=== PATIENT | female | born 1975 | race Caucasian/White ===

== ENCOUNTER 2017-12-02 19:29 | Inpatient (IN) | payer MEDICAID ==
[~2017-12-02] VITALS: Ht 167.6 cm; Wt 53.8 kg
[~2017-12-02 19:29] MED LIST: AMOX1TAB64 PO; BUPR150T6; BUSP10TA PO; CLON2TAB PO; DOXY25TA18 PO; ESCI10TA; HYDR100C2; HYDROXYZINE HCL; IBUP-1223; LIPA1CAP54; METF500T4 PO; MULT-658 PO; NORE0.3513; NORE0.3513 PO; NORE0.3535 PO; POLY17PO5 PO; SERT100T5 PO; SERT25TA PO; SERT50TA PO; SULF1TAB24 PO; TRAM100T33 PO; TRAZ150T62 PO; TRAZ300T6 PO; [UNRECOGNIZED DRUG - CODE]
[2017-12-02] MEDS ORDERED: SODIUM CHLORIDE FLUSH 10ML SYR IVF ONE (20:00)
[2017-12-02 20:24] LABS: BASOPHILS # (AUTO) 0.02 x10^3/uL (0-0.1); BASOPHILS % (AUTO) 0 % (0-1); EOSINOPHILS # (AUTO) 0.15 x10^3/uL (0-0.4); EOSINOPHILS % (AUTO) 2 % (1-7); LYMPHOCYTES % (AUTO) 10 % (22-44); MD NO; MEAN CORPUSCULAR HEMOGLOBIN 33.4 pg (27.0-34.8); MEAN CORPUSCULAR HGB CONC 33.8 g/dL (32.4-35.8); MEAN CORPUSCULAR VOLUME 98.9 fL (80-100); MEAN PLATELET VOLUME 7.5 fL (7.4-10.4); MONOCYTES # (AUTO) 0.59 x10^3/uL (0.2-0.8); MONOCYTES % (AUTO) 7 % (2-9); NEUTROPHILS # (AUTO) 7.31 x10^3/uL (1.8-6.8); NEUTROPHILS % (AUTO) 81 % (42-75); PLATELET COUNT 224 x10^3/uL (130-400); RED BLOOD COUNT 3.51 x10^6/uL (3.82-5.3); RED CELL DISTRIBUTION WIDTH 16.4 % (9.6-15.2)
[2017-12-02 20:32] LABS: ALANINE AMINOTRANSFERASE 135 U/L (12-78); ALBUMIN 3.5 g/dL (3.4-5.0); ANION GAP 5 mmol/L (5-15); CALCIUM 9.3 mg/dL (8.5-10.1); CHLORIDE 96 mmol/L (98-107); CREATININE 0.57 mg/dL (0.55-1.02)
[2017-12-02 20:34] LABS: ALKALINE PHOSPHATASE 422 U/L (45-117); BILIRUBIN,TOTAL 4.2 mg/dL (0.2-1.0); TOTAL PROTEIN 8.1 g/dL (6.4-8.2)
[2017-12-02 22:31] LABS: CULTURE INDICATED? YES; MICROSCOPIC INDICATED
[2017-12-02] MEDS ORDERED: morphine SULFATE 15 MG TAB.IR PO ONE (23:00)
[2017-12-02] MEDS ORDERED: ONDANSETRON ODT 4 MG PO ONE (23:00)
[2017-12-02] MEDS ORDERED: ONDANSETRON ODT 4 MG ONE (23:05)
[2017-12-03] MEDS ORDERED: PROCHLORPERAZINE 5 MG/ML, 2ML IVPush ONE (02:00)
[2017-12-03] MEDS ORDERED: MORPHINE SULFATE 4 MG/ML, 1ML IVPush ONE (02:00)
[2017-12-03] MEDS ORDERED: morphine SULFATE 10 MG/ML, 1ML ONE (02:07)
[2017-12-03] MEDS ORDERED: PROCHLORPERAZINE 5 MG/ML, 2ML ONE (02:07)
[2017-12-03 03:00] VITALS: BP 150/94
[2017-12-03] MEDS ORDERED: hydrALAzine 20 MG/ML, 1ML IVPush PRN (03:00)
[2017-12-03] MEDS ORDERED: POLYETHYLENE GLYCOL 17 GM PACKET PO PRN (03:00)
[2017-12-03] MEDS ORDERED: ONDANSETRON 2MG/ML, 2ML IVPush PRN (03:00)
[2017-12-03] MEDS ORDERED: ONDANSETRON ODT 4 MG PO PRN (03:00)
[2017-12-03] MEDS ORDERED: ACETAMINOPHEN 325 MG TABLET PO PRN (03:00)
[2017-12-03] MEDS ORDERED: BISACODYL 10 MG SUPP PR PRN (03:00)
[2017-12-03] MEDS ORDERED: PROMETHAZINE 25 MG/ML, 1ML IM PRN (03:00)
[2017-12-03] MEDS: SODIUM CHLORIDE 0.9% 1,000 ML IV SCH ×3 (03:13→18:44)
[2017-12-03] MEDS: CEFOTETAN PMX 1GM/50ML 50 ML IV SCH ×2 (03:40→16:50)
[2017-12-03] MEDS: NICOTINE 7 MG/24 HR PATCH.TD24 TD SCH (03:40)
[2017-12-03 04:01] LABS: INTERNATIONAL NORMALIZED RATIO 1.03 (0.93-1.1); PROTHROMBIN TIME 10.7 Seconds (9.6-11.5)
[2017-12-03 04:15] LABS: FREE T4 (FREE THYROXINE) 1.01 ng/dL (0.76-1.46)
[2017-12-03 04:19] LABS: HEMOGLOBIN A1C 5.5 % (4.2-6.3)
[2017-12-03] MEDS: METRONIDAZOLE PMX 500MG/100ML 100 ML IV SCH ×3 (04:32→22:50)
[2017-12-03] MEDS: INSULIN LISPRO 100 UNITS/ML, PEN SQ-INSULIN SCH ×4 (07:00→21:00)
[2017-12-03] MEDS: morphine SULFATE 10 MG/ML, 1ML IVPush PRN ×2 (08:03→10:49)
[2017-12-03] MEDS: SENNA/DOCUSATE TABLET PO SCH (08:10)
[2017-12-03] MEDS: MULTIVITAMIN 1 TABLET PO SCH (08:10)
[2017-12-03] MEDS: SERTRALINE 100MG TABLET PO SCH ×3 (08:11→22:54)
[2017-12-03 11:23] VITALS: BP 166/97
[2017-12-03] MEDS ORDERED: MAGNESIUM SULFATE PMX 2GM/50ML 50 ML IV ONE (12:00)
[2017-12-03] MEDS: HYDROmorphone 2 MG/ML, 1ML IVPush PRN ×4 (14:05→22:50)
[2017-12-03] MEDS ORDERED: LORazepam 2 MG/ML, 1ML IVPush ONE (15:00)
[2017-12-03 15:55] VITALS: BP 159/97
[2017-12-03 19:44] VITALS: BP 148/96
[2017-12-03] MEDS: TRAZODONE 150MG TABLET PO SCH (22:50)
[2017-12-04] MEDS: HYDROmorphone 2 MG/ML, 1ML IVPush PRN ×8 (02:11→23:06)
[2017-12-04 02:30] VITALS: BP 131/77
[2017-12-04] MEDS: CEFOTETAN PMX 1GM/50ML 50 ML IV SCH ×2 (03:58→16:27)
[2017-12-04] MEDS: METRONIDAZOLE PMX 500MG/100ML 100 ML IV SCH ×3 (05:15→21:14)
[2017-12-04] MEDS: SODIUM CHLORIDE 0.9% 1,000 ML IV SCH (05:15)
[2017-12-04] MEDS: NICOTINE 7 MG/24 HR PATCH.TD24 TD SCH (05:15)
[2017-12-04 05:33] LABS: ALANINE AMINOTRANSFERASE 71 U/L (12-78); ALBUMIN 2.8 g/dL (3.4-5.0); ANION GAP 6 mmol/L (5-15); CHLORIDE 105 mmol/L (98-107); CREATININE 0.64 mg/dL (0.55-1.02)
[2017-12-04 05:38] LABS: ALKALINE PHOSPHATASE 296 U/L (45-117); BILIRUBIN,TOTAL 1.3 mg/dL (0.2-1.0); CHOL/HDL RATIO 1.8; CHOLESTEROL, TOTAL 98 mg/dL (140-239); HDL CHOL % 55 % (28-40); HDL CHOLESTEROL (DIRECT) 54 mg/dL (40-60); LDL CHOLESTEROL,CALCULATED 34 mg/dL (54-169); LDL/HDL RATIO 0.6 (0.5-3.0); TOTAL PROTEIN 6.5 g/dL (6.4-8.2); TRIGLYCERIDES 49 mg/dL (50-200); VLDL CHOLESTEROL 10 mg/dL (0-25)
[2017-12-04 05:43] LABS: BASOPHILS # (AUTO) 0.03 x10^3/uL (0-0.1); BASOPHILS % (AUTO) 1 % (0-1); EOSINOPHILS # (AUTO) 0.08 x10^3/uL (0-0.4); EOSINOPHILS % (AUTO) 2 % (1-7); LYMPHOCYTES # (AUTO) 1.09 x10^3/uL (1-3.4); LYMPHOCYTES % (AUTO) 27 % (22-44); MD NO; MEAN CORPUSCULAR HEMOGLOBIN 33.9 pg (27.0-34.8); MEAN CORPUSCULAR HGB CONC 34.5 g/dL (32.4-35.8); MEAN CORPUSCULAR VOLUME 98.1 fL (80-100); MEAN PLATELET VOLUME 7.7 fL (7.4-10.4); MONOCYTES # (AUTO) 0.61 x10^3/uL (0.2-0.8); MONOCYTES % (AUTO) 15 % (2-9); NEUTROPHILS # (AUTO) 2.25 x10^3/uL (1.8-6.8); NEUTROPHILS % (AUTO) 56 % (42-75); PLATELET COUNT 211 x10^3/uL (130-400); RED BLOOD COUNT 2.92 x10^6/uL (3.82-5.3); RED CELL DISTRIBUTION WIDTH 16.2 % (9.6-15.2)
[2017-12-04] MEDS: INSULIN LISPRO 100 UNITS/ML, PEN SQ-INSULIN SCH ×4 (07:00→21:00)
[2017-12-04] MEDS: MULTIVITAMIN 1 TABLET PO SCH (08:04)
[2017-12-04] MEDS: SENNA/DOCUSATE TABLET PO SCH (08:05)
[2017-12-04 08:10] VITALS: BP 132/83
[2017-12-04] MEDS: LORazepam 2 MG/ML, 1ML IVPush PRN ×2 (13:14→21:08)
[2017-12-04 14:02] VITALS: BP 129/81
[2017-12-04] MEDS ORDERED: INSULIN LISPRO 100 UNITS/ML, PEN SQ-INSULIN ONE (17:00)
[2017-12-04 19:18] VITALS: BP 144/83
[2017-12-04] MEDS: TRAZODONE 150MG TABLET PO SCH ×2 (21:08→23:06)
[2017-12-04] MEDS: SERTRALINE 100MG TABLET PO SCH (21:09)
[2017-12-05 01:38] VITALS: BP 127/73
[2017-12-05] MEDS: HYDROmorphone 2 MG/ML, 1ML IVPush PRN ×7 (02:05→22:13)
[2017-12-05] MEDS: CEFOTETAN PMX 1GM/50ML 50 ML IV SCH ×2 (05:03→16:53)
[2017-12-05] MEDS: NICOTINE 7 MG/24 HR PATCH.TD24 TD SCH (05:03)
[2017-12-05] MEDS: METRONIDAZOLE PMX 500MG/100ML 100 ML IV SCH ×3 (05:53→20:46)
[2017-12-05] MEDS ORDERED: EPINEPHRINE 1 MG/ML, 1ML ONE (06:09)
[2017-12-05] MEDS ORDERED: BUPIVACAINE/PF 0.5% ONE (06:09)
[2017-12-05 06:18] LABS: BASOPHILS # (AUTO) 0.02 x10^3/uL (0-0.1); BASOPHILS % (AUTO) 1 % (0-1); EOSINOPHILS % (AUTO) 3 % (1-7); LYMPHOCYTES % (AUTO) 28 % (22-44); MD NO; MEAN CORPUSCULAR HEMOGLOBIN 33.8 pg (27.0-34.8); MEAN CORPUSCULAR HGB CONC 34.1 g/dL (32.4-35.8); MEAN CORPUSCULAR VOLUME 99.1 fL (80-100); MEAN PLATELET VOLUME 7.4 fL (7.4-10.4); MONOCYTES # (AUTO) 0.57 x10^3/uL (0.2-0.8); MONOCYTES % (AUTO) 14 % (2-9); NEUTROPHILS # (AUTO) 2.33 x10^3/uL (1.8-6.8); NEUTROPHILS % (AUTO) 55 % (42-75); PLATELET COUNT 238 x10^3/uL (130-400); RED BLOOD COUNT 2.97 x10^6/uL (3.82-5.3); RED CELL DISTRIBUTION WIDTH 16.2 % (9.6-15.2)
[2017-12-05 06:31] LABS: ALANINE AMINOTRANSFERASE 51 U/L (12-78); ALBUMIN 2.6 g/dL (3.4-5.0); ANION GAP 8 mmol/L (5-15); CALCIUM 8.7 mg/dL (8.5-10.1); CHLORIDE 104 mmol/L (98-107)
[2017-12-05 06:33] LABS: ALKALINE PHOSPHATASE 263 U/L (45-117); BILIRUBIN,TOTAL 1.1 mg/dL (0.2-1.0); CREATININE 0.66 mg/dL (0.55-1.02); TOTAL PROTEIN 6.4 g/dL (6.4-8.2)
[2017-12-05] MEDS ORDERED: ONDANSETRON ODT 8 MG PO ONE ×2 (07:00→08:30)
[2017-12-05] MEDS ORDERED: GABAPENTIN 300 MG CAPSULE PO ONE ×2 (07:00→08:30)
[2017-12-05] MEDS: INSULIN LISPRO 100 UNITS/ML, PEN SQ-INSULIN SCH ×4 (07:00→20:45)
[2017-12-05 07:10] VITALS: BP 147/89
[2017-12-05] MEDS ORDERED: PROMETHAZINE 25 MG/ML, 1ML IV PRN (07:30)
[2017-12-05] MEDS ORDERED: DIPHENHYDRAMINE 50 MG/ML, 1ML IVPush PRN (07:30)
[2017-12-05] MEDS ORDERED: MORPHINE SULFATE 4 MG/ML, 1ML IVPush PRN (07:30)
[2017-12-05] MEDS ORDERED: LORazepam 2 MG/ML, 1ML IVPush PRN (07:30)
[2017-12-05] MEDS ORDERED: SCOPOLAMINE PATCH, 1.5MG PATCH.TD72 TD PRN (07:30)
[2017-12-05] MEDS ORDERED: hydrALAzine 20 MG/ML, 1ML IV PRN (07:30)
[2017-12-05] MEDS ORDERED: LABETALOL 5MG/ML, 20ML IV PRN (07:30)
[2017-12-05] MEDS ORDERED: MEPERIDINE/PF 25MG/0.5ML IVPush PRN (07:30)
[2017-12-05] MEDS ORDERED: DIAZEPAM 5 MG/ML, 2ML IVPush PRN (07:30)
[2017-12-05] MEDS ORDERED: ALBUTEROL/IPRATROPIUM 2.5MG/0.5MG, 3 ML NPPB PRN (07:30)
[2017-12-05] MEDS ORDERED: EPHEDRINE 50 MG/ML, 1ML IM PRN (07:30)
[2017-12-05] MEDS ORDERED: MIDAZOLAM 1 MG/ML, 2ML IV PRN (07:30)
[2017-12-05] MEDS ORDERED: FENTANYL PF 100 MCG/2ML ONE ×2 (08:26→09:36)
[2017-12-05] MEDS ORDERED: MIDAZOLAM 1 MG/ML, 2ML ONE ×2 (08:26→10:09)
[2017-12-05] MEDS ORDERED: LIDOCAINE GEL 2%, 5ML ONE (08:28)
[2017-12-05] MEDS ORDERED: MEPERIDINE/PF 100 MG/ML ONE (08:50)
[2017-12-05] MEDS ORDERED: LABETALOL 5MG/ML, 20ML ONE (08:53)
[2017-12-05] MEDS ORDERED: BUPIVACAINE/PF-EPI 0.5% 1:200K INFIL ONE (08:59)
[2017-12-05] MEDS: SENNA/DOCUSATE TABLET PO SCH (09:00)
[2017-12-05] MEDS: SERTRALINE 100MG TABLET PO SCH ×2 (09:00→20:44)
[2017-12-05] MEDS: MULTIVITAMIN 1 TABLET PO SCH (09:00)
[2017-12-05] MEDS ORDERED: EPINEPHRINE 1 MG/ML, 1ML INFIL ONE (09:01)
[2017-12-05] MEDS ORDERED: ONDANSETRON 2MG/ML, 2ML ONE (09:09)
[2017-12-05] MEDS ORDERED: KETOROLAC 30 MG/1 ML ONE (09:09)
[2017-12-05] MEDS ORDERED: ROCURONIUM 10MG/ML,5ML ONE (09:09)
[2017-12-05] MEDS ORDERED: CEFAZOLIN 1,000 MG ONE (09:09)
[2017-12-05] MEDS ORDERED: DEXAMETHASONE 4 MG/ML, 1ML ONE (09:09)
[2017-12-05] MEDS ORDERED: SUCCINYLCHOLINE 20 MG/ML, 10ML ONE (09:09)
[2017-12-05] MEDS ORDERED: PROPOFOL 10 MG/ML, 20ML ONE (09:09)
[2017-12-05] MEDS ORDERED: NEOSTIGMINE 1 MG/ML, 10ML ONE (09:09)
[2017-12-05] MEDS ORDERED: GLYCOPYRROLATE 0.2MG/1ML, 5ML ONE (09:09)
[2017-12-05] MEDS ORDERED: ACETAMINOPHEN 650 MG/20.3 ML UDC ONE (09:36)
[2017-12-05] MEDS ORDERED: OXYcodone 5 MG/5 ML ORAL.SOL UDC ONE ×2 (09:36→09:39)
[2017-12-05] MEDS: FENTANYL PF 100 MCG/2ML IV PRN ×2 (09:38→09:42)
[2017-12-05] MEDS: OXYcodone 5 MG/5 ML ORAL.SOL UDC PO PRN ×2 (09:40→09:44)
[2017-12-05] MEDS ORDERED: HYDROmorphone 2 MG/ML, 1ML ONE (09:47)
[2017-12-05] MEDS: HYDROmorphone 1 MG/ML, 1ML IV PRN ×4 (09:52→10:16)
[2017-12-05 12:15] VITALS: BP 138/88
[2017-12-05] MEDS: OXYcodone IR 5MG TABLET PO PRN ×2 (13:47→17:49)
[2017-12-05] MEDS: LORazepam 2 MG/ML, 1ML IVPush PRN (16:26)
[2017-12-05 20:29] VITALS: BP 150/88
[2017-12-05] MEDS: SODIUM CHLORIDE FLUSH 10ML SYR IVF SCH (20:45)
[2017-12-05] MEDS: TRAZODONE 150MG TABLET PO SCH (22:13)
[2017-12-06] MEDS: LORazepam 2 MG/ML, 1ML IVPush PRN (00:38)
[2017-12-06 00:41] VITALS: BP 145/80
[2017-12-06] MEDS: HYDROmorphone 2 MG/ML, 1ML IVPush PRN ×3 (01:29→07:31)
[2017-12-06 03:51] VITALS: BP 130/82
[2017-12-06] MEDS: CEFOTETAN PMX 1GM/50ML 50 ML IV SCH ×2 (04:20→16:13)
[2017-12-06] MEDS: METRONIDAZOLE PMX 500MG/100ML 100 ML IV SCH ×2 (05:43→13:00)
[2017-12-06] MEDS: NICOTINE 7 MG/24 HR PATCH.TD24 TD SCH (05:43)
[2017-12-06] MEDS: SERTRALINE 100MG TABLET PO SCH (07:30)
[2017-12-06] MEDS: SENNA/DOCUSATE TABLET PO SCH (07:30)
[2017-12-06] MEDS: SODIUM CHLORIDE FLUSH 10ML SYR IVF SCH (07:30)
[2017-12-06] MEDS: MULTIVITAMIN 1 TABLET PO SCH (07:31)
[2017-12-06] MEDS: INSULIN LISPRO 100 UNITS/ML, PEN SQ-INSULIN SCH ×3 (07:31→16:00)
[2017-12-06 08:15] VITALS: BP 144/92
[2017-12-06] MEDS: OXYcodone IR 5MG TABLET PO PRN ×2 (10:51→15:20)
[2017-12-06 13:55] VITALS: BP 129/88
[2017-12-06] MEDS ORDERED: SENN1TAB7 PO (14:30)
== END 2017-12-06 16:45 | disposition home or self-care (01) | DRG 418 ==
LOC: ED 22:39 → EDIP 12-03 01:52 → 3NE 12-03 03:06 → 4NOR 12-05 11:14 → DCLOUNGE 12-06 16:38
PROVIDERS: ADMIT Internal Medicine; ATTEND Internal Medicine
PROC: 0FT44ZZ Resection of Gallbladder, Percutaneous Endoscopic Approach (ICD-10-PCS; principal; 2017-12-05 08:30)
DX: K81.0 Acute cholecystitis (principal); E87.1 Hypo-osmolality and hyponatremia; K86.3 Pseudocyst of pancreas; F11.20 Opioid dependence, uncomplicated; K86.0 Alcohol-induced chronic pancreatitis; K74.60 Unspecified cirrhosis of liver; N39.0 Urinary tract infection, site not specified; E11.9 Type 2 diabetes mellitus without complications; F12.10 Cannabis abuse, uncomplicated; F17.210 Nicotine dependence, cigarettes, uncomplicated; F32.9 Major depressive disorder, single episode, unspecified; F41.9 Anxiety disorder, unspecified; G89.29 Other chronic pain; K82.8 Other specified diseases of gallbladder; K59.00 Constipation, unspecified; I10 Essential (primary) hypertension; E80.6 Other disorders of bilirubin metabolism; M54.5 Low back pain; M47.896 Other spondylosis, lumbar region; Z80.49 Family history of malignant neoplasm of other genital organs; Z80.8 Family history of malignant neoplasm of other organs or systems; Z90.710 Acquired absence of both cervix and uterus; Z91.030 Bee allergy status; Z88.8 Allergy status to other drugs, medicaments and biological substances; Z82.49 Family history of ischemic heart disease and other diseases of the circulatory system; Z79.899 Other long term (current) drug therapy; Z90.721 Acquired absence of ovaries, unilateral
CPT/HCPCS: 36415; 74181; 76700; 80053; 80061; 81001; 82962; 83036; 83690; 83735; 84100; 84439; 84443; 85025; 85610; 87040; 87086; 88304; 96374; 96375; J0171; J0690; J1100; J1170; J1885; J2250; J2405; J2704; J2710; J3010; J3490; Q0162; J0330; J0780; J1815; J2060; J2175; J2270; J3475; J7030; S0074

== ENCOUNTER 2017-12-11 15:25 | Emergency (ER) | payer MEDICAID ==
[~2017-12-11] VITALS: Ht 167.6 cm; Wt 55.6 kg
[~2017-12-11 15:25] MED LIST changes: +SENN1TAB7 PO
[2017-12-11 16:06] LABS: BASOPHILS # (AUTO) 0.05 x10^3/uL (0-0.1); BASOPHILS % (AUTO) 1 % (0-1); EOSINOPHILS # (AUTO) 0.12 x10^3/uL (0-0.4); EOSINOPHILS % (AUTO) 2 % (1-7); LYMPHOCYTES # (AUTO) 1.54 x10^3/uL (1-3.4); LYMPHOCYTES % (AUTO) 20 % (22-44); MD NO; MEAN CORPUSCULAR HEMOGLOBIN 32.7 pg (27.0-34.8); MEAN CORPUSCULAR HGB CONC 33.4 g/dL (32.4-35.8); MONOCYTES # (AUTO) 0.43 x10^3/uL (0.2-0.8); MONOCYTES % (AUTO) 6 % (2-9); NEUTROPHILS # (AUTO) 5.74 x10^3/uL (1.8-6.8); NEUTROPHILS % (AUTO) 73 % (42-75); PLATELET COUNT 439 x10^3/uL (130-400); RED BLOOD COUNT 3.39 x10^6/uL (3.82-5.3); RED CELL DISTRIBUTION WIDTH 15.7 % (9.6-15.2)
[2017-12-11 16:15] LABS: ALANINE AMINOTRANSFERASE 37 U/L (12-78); ALBUMIN 3.4 g/dL (3.4-5.0); ANION GAP 7 mmol/L (5-15); CALCIUM 8.1 mg/dL (8.5-10.1); CHLORIDE 95 mmol/L (98-107)
[2017-12-11 16:19] LABS: ALKALINE PHOSPHATASE 195 U/L (45-117); BILIRUBIN,TOTAL 0.9 mg/dL (0.2-1.0); TOTAL PROTEIN 7.7 g/dL (6.4-8.2)
[2017-12-11] MEDS ORDERED: HYDROcodone/APAP 5/325 TABLET ONE (16:20)
[2017-12-11] MEDS ORDERED: HYDROcodone/APAP 5/325 TABLET PO ONE (16:30)
[2017-12-11 16:31] LABS: INTERNATIONAL NORMALIZED RATIO 1.05 (0.93-1.1); PROTHROMBIN TIME 10.9 Seconds (9.6-11.5)
[2017-12-11] MEDS ORDERED: B12/1TAB PO (16:44)
[2017-12-11 16:45] VITALS: BP 185/109
[2017-12-11 17:07] LABS: MICROSCOPIC NOT IND
[2017-12-11 17:08] LABS: CULTURE INDICATED? NO
== END 2017-12-11 17:36 | disposition home or self-care (01) ==
LOC: ED 16:16
DX: R60.0 Localized edema (principal); E11.9 Type 2 diabetes mellitus without complications; M19.90 Unspecified osteoarthritis, unspecified site; I50.9 Heart failure, unspecified; Z90.49 Acquired absence of other specified parts of digestive tract; Z90.710 Acquired absence of both cervix and uterus
CPT/HCPCS: 36415; 80053; 81003; 83880; 85025; 85610; 85730; 93970; 99285

== ENCOUNTER → 2020-03-05 | Outpatient (CLI) | payer MEDICAID ==
[~2020-03-05] MED LIST changes: +B12/1TAB PO; +METF500T17 PO; -METF500T4 PO; +SENN-177 PO; -SENN1TAB7 PO; +SERT100T32 PO; -SERT100T5 PO
== END | disposition home or self-care (01) ==
LOC: STAR 11:41
PROVIDERS: ATTEND Anesthesiology
DX: Z01.818 Encounter for other preprocedural examination (principal); Z11.59 Encounter for screening for other viral diseases
CPT/HCPCS: 36415; 87635

== ENCOUNTER 2020-03-10 10:29 | Day surgery (SDC) | payer MEDICAID, OTHER ==
[~2020-03-10] VITALS: Ht 167.6 cm; Wt 61.9 kg
[2020-03-10 11:07] VITALS: BP 150/100
[2020-03-10] MEDS ORDERED: MIDAZOLAM 1 MG/ML, 2ML ONE (11:09)
[2020-03-10] MEDS ORDERED: FENTANYL PF 100 MCG/2ML ONE (11:09)
[2020-03-10] MEDS ORDERED: LACTATED RINGERS 1,000 ML IV SCH (11:14)
[2020-03-10] MEDS ORDERED: BACL20TA PO (11:14)
[2020-03-10] MEDS ORDERED: IBUP-1223 PO (11:14)
[2020-03-10] MEDS ORDERED: TRAZ150T62 PO (11:14)
[2020-03-10] MEDS ORDERED: QUET100T4 PO (11:14)
[2020-03-10] MEDS ORDERED: GABA-827 PO (11:14)
[2020-03-10] MEDS ORDERED: VENL100T PO (11:14)
[2020-03-10] MEDS ORDERED: CHLORHEXIDINE 15 ML UDC MM ONE (11:30)
[2020-03-10] MEDS ORDERED: PROMETHAZINE 25 MG/ML, 1ML IVPush PRN (11:30)
[2020-03-10] MEDS ORDERED: FENTANYL PF 100 MCG/2ML IV PRN (11:30)
[2020-03-10] MEDS ORDERED: PLEASE ENTER HEIGHT AND WEIGHT MC SCH (11:30)
[2020-03-10] MEDS ORDERED: ONDANSETRON 2MG/ML, 2ML IVPush PRN (11:30)
[2020-03-10 11:42] LABS: HCG UR SG 1.012 (1.003-1.030)
[2020-03-10] MEDS ORDERED: PROPOFOL 10 MG/ML, 20ML ONE (12:31)
[2020-03-10] MEDS ORDERED: SUCCINYLCHOLINE 20 MG/ML, 10ML ONE (12:31)
[2020-03-10] MEDS ORDERED: AMPICILLIN/SULBACTAM 3 GM in SODIUM CHLORIDE 0.9% 100 ML IV ONE (14:00)
[2020-03-10] MEDS ORDERED: MORPHINE SULFATE 4 MG/ML, 1ML ONE (14:15)
[2020-03-10] MEDS: morphine SULFATE 10 MG/ML, 1ML IVPush PRN ×2 (14:17→15:16)
[2020-03-10] MEDS ORDERED: LABETALOL 5MG/ML, 20ML ONE (14:24)
[2020-03-10] MEDS ORDERED: LABETALOL 5MG/ML, 20ML IVPush PRN (14:30)
== END 2020-03-10 16:25 | disposition home or self-care (01) ==
LOC: OUT 10:29
PROVIDERS: ATTEND Internal Medicine Geriatric Medicine
DX: R93.5 Abnormal findings on diagnostic imaging of other abdominal regions, including retroperitoneum (principal); K85.90 Acute pancreatitis without necrosis or infection, unspecified; K86.1 Other chronic pancreatitis; K29.50 Unspecified chronic gastritis without bleeding; E11.9 Type 2 diabetes mellitus without complications; F17.200 Nicotine dependence, unspecified, uncomplicated; Z79.899 Other long term (current) drug therapy
CPT/HCPCS: 43239; 43242; 81025; 82962; 88172; 88173; 88177; 88305; 88307; J0330; J2250; J2270; J2704; J3010

== ENCOUNTER 2020-04-21 10:04 | Day surgery (SDC) | payer MEDICAID ==
[~2020-04-21] VITALS: Ht 167.6 cm; Wt 61.2 kg
[~2020-04-21 10:04] MED LIST changes: +BACL20TA PO; +GABA-827 PO; +IBUP-1223 PO; +QUET100T4 PO; +VENL100T PO
[2020-04-21] MEDS ORDERED: LACTATED RINGERS 1,000 ML IV SCH (10:19)
[2020-04-21 10:27] VITALS: BP 160/111
[2020-04-21] MEDS ORDERED: CHLORHEXIDINE 15 ML UDC MM ONE (10:30)
[2020-04-21] MEDS ORDERED: CHLORHEXIDINE 15 ML UDC ONE (10:36)
[2020-04-21] MEDS ORDERED: ESTR0.45 PO (10:42)
[2020-04-21] MEDS ORDERED: PROPOFOL 10 MG/ML, 50ML ONE (11:09)
[2020-04-21 11:12] LABS: ALANINE AMINOTRANSFERASE 31 U/L (12-78); ALBUMIN 3.7 g/dL (3.4-5.0); ANION GAP 4 mmol/L (5-15); CHLORIDE 101 mmol/L (98-107)
[2020-04-21 11:14] LABS: ALKALINE PHOSPHATASE 155 U/L (45-117); BILIRUBIN,TOTAL 0.4 mg/dL (0.2-1.0); TOTAL PROTEIN 7.5 g/dL (6.4-8.2)
[2020-04-21] MEDS ORDERED: EPHEDRINE 50 MG/ML, 1ML IVPush PRN (11:30)
[2020-04-21] MEDS ORDERED: ONDANSETRON 2MG/ML, 2ML IVPush PRN (11:30)
[2020-04-21] MEDS ORDERED: EPHEDRINE 50 MG/ML, 1ML IM PRN (11:30)
[2020-04-21] MEDS ORDERED: DIAZEPAM 5 MG/ML, 2ML IVPush PRN (11:30)
[2020-04-21] MEDS ORDERED: DIPHENHYDRAMINE 50 MG/ML, 1ML IVPush PRN (11:30)
[2020-04-21] MEDS ORDERED: PROMETHAZINE 25 MG/ML, 1ML IVPush PRN (11:30)
[2020-04-21] MEDS ORDERED: LABETALOL 5MG/ML, 20ML IV PRN (11:30)
[2020-04-21] MEDS ORDERED: MEPERIDINE/PF 25MG/0.5ML IVPush PRN (11:30)
[2020-04-21] MEDS ORDERED: CIPROFLOXACIN/PMX 400MG/200ML 200 ML ONE (11:35)
[2020-04-21] MEDS ORDERED: METRONIDAZOLE PMX 500MG/100ML 100 ML ONE (11:36)
[2020-04-21] MEDS ORDERED: FENTANYL PF 100 MCG/2ML ONE (12:31)
[2020-04-21] MEDS: FENTANYL PF 100 MCG/2ML IV PRN ×2 (12:33→12:41)
[2020-04-21] MEDS ORDERED: HYDROmorphone 1 MG/ML, 1ML INJ ONE (12:55)
[2020-04-21] MEDS: HYDROmorphone 1 MG/ML, 1ML INJ IVPush PRN ×3 (12:59→13:20)
== END 2020-04-21 15:20 | disposition home or self-care (01) ==
LOC: OUT 10:04
PROVIDERS: ATTEND Internal Medicine Geriatric Medicine
DX: K86.89 Other specified diseases of pancreas (principal); Z79.899 Other long term (current) drug therapy
CPT/HCPCS: 43242; 80053; 82962; 88172; 88173; 88307; 93005; J0744; J1170; J2704; J3010; J7120

== ENCOUNTER 2020-12-29 10:05 | Emergency (ER) | payer MEDICAID ==
[~2020-12-29] VITALS: Ht 167.6 cm; Wt 59.2 kg
[~2020-12-29 10:05] MED LIST changes: +BUPR150T22; -BUPR150T6; -ESCI10TA; +ESCI10TA97; +ESTR0.45 PO; -NORE0.3513; -NORE0.3513 PO; +NORE0.3519; +NORE0.3519 PO; +SULF-23 PO; -SULF1TAB24 PO
[2020-12-29 10:38] LABS: BASOPHILS % (AUTO) 1 % (0-1); EOSINOPHILS % (AUTO) 1 % (1-7); LYMPHOCYTES % (AUTO) 19 % (22-44); MEAN CORPUSCULAR HEMOGLOBIN 34.7 pg (27.0-34.8); MEAN CORPUSCULAR HGB CONC 34.8 g/dL (32.4-35.8); MEAN PLATELET VOLUME 7.9 fL (7.4-10.4); MONOCYTES % (AUTO) 6 % (2-9); NEUTROPHILS % (AUTO) 74 % (42-75); PLATELET COUNT 228 x10^3/uL (130-400); RED BLOOD COUNT 4.13 x10^6/uL (3.82-5.3); RED CELL DISTRIBUTION WIDTH 13.4 % (9.6-15.2)
[2020-12-29 10:47] LABS: ALBUMIN 3.6 g/dL (3.4-5.0); ANION GAP 8 mmol/L (5-15); CHLORIDE 101 mmol/L (98-107)
--- NOTE | 2020-12-29 12:10 | NUR ---
rn emergency room: attempted to evan pt rom lobby to room, no answer in lobby
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
[2020-12-29] MEDS ORDERED: DESV100T16 PO (13:09)
[2020-12-29] MEDS ORDERED: GABA800T5 PO (13:09)
[2020-12-29] MEDS ORDERED: ACYC-40 PO (13:09)
[2020-12-29 13:11] VITALS: BP 157/99
== END 2020-12-29 13:41 | disposition home or self-care (01) ==
LOC: ED 13:35
DX: J15.9 Unspecified bacterial pneumonia (principal); Z20.822 Contact with and (suspected) exposure to COVID-19; R06.02 Shortness of breath; R05 Cough; K21.9 Gastro-esophageal reflux disease without esophagitis; E11.9 Type 2 diabetes mellitus without complications; F17.200 Nicotine dependence, unspecified, uncomplicated; Z90.49 Acquired absence of other specified parts of digestive tract; Z90.710 Acquired absence of both cervix and uterus
CPT/HCPCS: 36415; 71045; 80048; 82040; 85025; 99284; U0003; U0005